=== PATIENT | female | born 1990 | race African-American/Black ===

== ENCOUNTER 2018-10-16 01:28 | Inpatient (IN) | payer OTHER, SELFPAY ==
[2018-10-16] MEDS: Lactated Ringers 500 ML 999 ML IV ×2 (03:53→05:20)
[2018-10-16 04:00] VITALS: BMI 31.3
--- NOTE | 2018-10-16 04:03 | HP.PCM_ITS ---
- Problem List (1) Active labor at term Status: Acute (2) Hyperprolactinemia Status: Acute (3) Rh negative status during Status: Acute (4) History of herpes genitalis Status: Acute (5) History of spontaneous Status: Acute History Date of Admission: 10/16/18 Final FILIPPO: 10/14/18 Gestational age: 40 Weeks and 2 Days History of this : This is a 28 year-old, G [3], P [1011], at 40 weeks 2 days gestational age by US. Presented to L&D with contractions that started around 1pm yesterday afternoon and progressed throughout the night into the evening. Became closer together and more intense early this am around midnight. No vaginal bleeding or leakage of fluid. Good movement. and family at bedside. Allergies No Known Allergies Allergy (Verified 10/16/18 04:01) Home Medications: Home Medications Acyclovir 400 mg PO BID 10/16/18 Tablet 1 tab PO DAILY 10/16/18 Smoking Status: Never smoker Alcohol: None Number of Fetus(es): 1 NST - FHR Rate Baby A Baseline: 130 Variability:: Minimal Accelerations:: 15 x 15 Decelerations:: None FHR Category:: Category II Uterine Activity:: Every 4-5 minutes, strong History Past Pregnancies: Past Pregnancies Delivery Date Name GA/Weeks Outcome Route Weight Infant Gender Labor Length Anesthesia Delivery Location Provider FOB Labs: GBS negative Mom's Problem List Problem Status Onset Code Active labor at term Acute Hyperprolactinemia Acute E22.1 Rh negative status during Acute O26.899, Z67.91 Mom's Labs & Results 10/16/18 10/16/18 02:05 02:05 WBC Pending RBC Pending Hgb Pending Hct Pending MCV Pending MCH Pending MCHC Pending RDW Std Deviation Pending RDW Coeff of Paty Pending Plt Count Pending Blood Type Pending Antibody Screen Pending Course Did the patient receive Yes care? Labs Blood Type: O RH: NEGATIVE RPR/VDRL/Syphilis Nonreactive Rubella status Immune HbSAg Negative Date Done: 02/27/18 Chlamydia Negative Gonorrhea Negative HIV/AIDS Non-Reactive Group B Strep: Negative Current Obstetrical History Gestational Diabetes No Incompetent Cervix No Infertility No IUGR No Macrosomia No Hypertension/Pre-eclampsia No Placenta Previa/Abruption No PTL/PROM No Uterine anomaly No Oligohydramnios No Polyhydramnios No Multiple gestation No Past Medical History Asthma No Diabetes No Hypertension No Heart disease No Mitral valve prolapse No Neurologic/Seizure disorder/ No Migraines Kidney disease No Liver disease No Varicosities No Clotting disorders/Hx of DVT No Thyroid Dysfunction No Other medical diseases No Psychiatric disorders No Major trauma No Abnormal PAP smear No Sleep apnea No Mammogram in the last 2 years No Social History Hx Smoking No Smoking Status Never smoker Expected Delivery Method: Spontaneous Vaginal Review of Systems Constitutional: Denies: Chills, Fever, Weight Change HEENT: Denies: Head Aches Cardiovascular: Denies: Chest Pain, Palpitations Respiratory: Denies: Cough, Shortness of breath at rest, Sputum production Gastrointestinal: Denies: Nausea, Vomiting Genitourinary: Denies: Dysuria Neurological: Denies: Numbness, Tingling, Focal weakness Psychiatric: Denies: Anxiety, Depression, Homicidal Ideations, Suicidal Ideations Physical Exam General: Alert, Oriented x3, Cooperative HEENT: Atraumatic, Normocephalic Cardiovascular: Regular rate, Regular Rhythm, No murmurs Lungs: Clear to auscultation, Normal air movement, No rhonchi, No wheeze Abdomen: Soft, Gravid Extremities:: No edema Neurological: Deep Tendon Reflexes 2+/4 and Symmetrical. Negative for: Clonus CLOCK AND WATCH HANDS MOUNTER: Normal external genitalia Estimated gestational size: Appropriate for gestational size Presentation: Cephalic Cervix Dilation (cm): 7 - vertex Station: -2 Effacement (%): 90 Assessment/Plan All Active Problems Active labor at term (Acute) Hyperprolactinemia (Acute) Rh negative status during (Acute) History of herpes genitalis (Acute) History of spontaneous (Acute) This is a 28 year-old, G [3], P [1011], at 40 weeks 2 days gestational age by ultrasound Active labor GBS negative Category 2 FHT P: 1)Admit to L&D 2)Routine lab, IV saline lock 3)Would like unmedicated . Nitrous and warm water immersion for pain relief. Epidural upon request 4) Positional changes 5) notified of patient status and admission 6) History of genital herpes, no active outbreak. Taking Acyclovir for prophylaxis.
[2018-10-16] MEDS: Lactated Ringers 1,000 ML 50 ML IV (04:23)
[2018-10-16] MEDS: Ondansetron 4 MG/2 ML Vial IV (04:25)
[2018-10-16 04:30] LABS: Hematocrit 39.2 % (37-47); Mean Corp Hgb Conc 33.2 g/dL (32-36); Mean Corpuscular Hgb 31.1 pg (27.0-32.0); Mean Corpuscular Volume 93.8 fL (81-99); Mean Platelet Vol. 10.9 fl (6.2-12.0); Platelet Count 157 K/mm3 (150-450); RBC Distribution Width CV 13.7 % (11.6-14.6); RBC Distribution Width SD 46.4 fl (35.1-43.9); Red Blood Count 4.18 M/mm3 (4.2-5.4); White Blood Count 7.8 K/mm3 (4.4-11.0)
[2018-10-16] MEDS: Oxytocin 30 units/NS 500 ml 30 UNITS/500 ML IV.SOLN 334 UNITS IV (06:34)
--- NOTE | 2018-10-16 07:02 | OP.PCM_ITS ---
Problem List (1) Active labor at term Status: Acute (2) Hyperprolactinemia Status: Acute (3) Rh negative status during Status: Acute (4) History of herpes genitalis Status: Acute (5) History of spontaneous Status: Acute Vaginal Delivery Maternal Presentation: Active Labor Amniotic Membrane Rupture Type: Artificial Amniotic Fluid Description: Clear Final FILIPPO: 10/14/18 Final FILIPPO Source: US <20 weeks Gestational age: 40 Weeks and 2 Days Date of Procedure: 10/16/18 Pre-Operative Diagnosis: Active Labor Post-Operative Diagnosis: Surgery/ Procedure Performed: Spontaneous Vaginal Delivery Type of Anesthesia: None, Local with 1% lidocaine - For perineal repair Description of Procedure: Progressed to complete with strong urge to push, unmedicated. Good pushing efforts and imminent delivery. of viable female infant over 1st degree perineal laceration. APGARS 8,9. Infant head delivered with body forthcoming, terminal meconium. Infant placed on maternal abdomen. Mouth and nares suctioned for secretions. Spontaneous cry. Pitocin started for active 3rd stage management. Placenta delivered via maternal effort el, intact, 3 vessel cord. Perineum inspected and revealed 1st degree perineal laceration. Repaired w ith 3.0 vicryl and Lidocaine. Well approximated and hemostasis achieved. Fundus firm, EBL 200ml. Vaginal sweep completed. Sponge and instrument count correct. Mom and baby stable. Planning to breastfeed. Family bonding well. notified of delivery. Presentation: Vertex Placental Delivery Description: Spontaneous Placenta Disposition: [facility] Cord Vessel Description: 3 Vessels Cord Entanglement: None Estimated Blood Loss: 200 ml Infant A gender: Female (1 minute): 8 (5 minute): 9 Episiotomy Description: None Laceration: Perineal Extension/lac, 1st degree Medications given after delivery: IV Pitocin
[2018-10-16 12:50] VITALS: BP 109/63; PULSE 70; RESP 18; TEMP 36.6
[2018-10-16 16:10] VITALS: BP 121/64; PULSE 71; RESP 16; TEMP 36.7; O2SAT 97
[2018-10-16 20:45] VITALS: BP 121/58; PULSE 82; RESP 16; TEMP 37.1
[2018-10-17] VITALS: BP 131/63; PULSE 78; RESP 16; TEMP 36.6
[2018-10-17 03:30] VITALS: BP 124/63; PULSE 74; RESP 16; TEMP 36.6
[2018-10-17 06:54] LABS: Hemoglobin 12.6 g/dL (12.0-15.0); Mean Corp Hgb Conc 34.1 g/dL (32-36); Mean Corpuscular Volume 93.9 fL (81-99); Mean Platelet Vol. 10.8 fl (6.2-12.0); POSITIVE COUNT YES; Platelet Count 135 K/mm3 (150-450); RBC Distribution Width CV 13.6 % (11.6-14.6); RBC Distribution Width SD 46.5 fl (35.1-43.9); Red Blood Count 3.94 M/mm3 (4.2-5.4); White Blood Count 12.9 K/mm3 (4.4-11.0)
[2018-10-17 07:00] LABS: Scan Indicated on CBC? Y/N YES- FLAGS NOTED
[2018-10-17 07:42] VITALS: BP 119/60; PULSE 69; RESP 16; TEMP 36.6; O2SAT 98
--- NOTE | 2018-10-17 10:58 | DCINST_ITS ---
Discharge Diet: No Restrictions Discharge Activity: Return to Normal Activity, May not drive while taking narcotic pain medications., May Shower May resume sexual activity in: 4-6 weeks Additional Activity Instructions:: Nothing in the vagina for 4-6 weeks. You may return to work/school in 6 weeks. Call your doctor if your incision/area has: Continuous Slow Oozing, Sudden Increased Bleeding, Increased Pain/ Swelling, Increased Redness, Foul Smelling Discharge Additional Instructions: If you experience any of the following, contact your healthcare provider. * Bleeding that soaks a pad every hour for 2 hours * Fever 100.4 or higher * Unrelieved incision or abdominal pain * Swelling, redness, discharge or bleeding from your incision or episiotomy site * Your incision begins to separate * Problems urinating (including inability to urinate or burning while urinating). * Visual changes * Severe headache * Flu-like symptoms * Pain or redness in one of both of your breasts * Pain, warmth, tenderness or swelling in your legs, especially the calf area * Frequent nausea and vomiting * Symptoms of depression or anxiety If you experience any of the following, call 911 or go to the nearest Emergency Room. * Chest pain * Problems breathing * Seizure activity * Partial or complete paralysis of a body part, slurred speech, weakness or drooping of the face, or a sudden inability to walk or hold your balance Allergies/Adverse Reactions: Allergies No Known Allergies Allergy (Verified 10/16/18 04:01) Medications to take at Discharge Acyclovir 400 mg PO BID 10/16/18 Tablet 1 tab PO DAILY 10/16/18 Please Follow Up With: Kelly Bonilla, [facility] - [phone] When: Make appointments in 1-2 in 6 weeks or as needed. Primary Care Physician: Care Physician,No Primary [Primary Care Provider] - Test Results: Test results from this visit will be discussed in further detail at your follow- up appointment, if applicable.
--- NOTE | 2018-10-17 10:58 | PCM.DCVAG ---
Discharge Diet: No Restrictions Discharge Activity: Return to Normal Activity, May not drive while taking narcotic pain medications., May Shower May resume sexual activity in: 4-6 weeks Additional Activity Instructions:: Nothing in the vagina for 4-6 weeks. You may return to work/school in 6 weeks. Call your doctor if your incision/area has: Continuous Slow Oozing, Sudden Increased Bleeding, Increased Pain/ Swelling, Increased Redness, Foul Smelling Discharge Additional Instructions: If you experience any of the following, contact your healthcare provider. Bleeding that soaks a pad every hour for 2 hours Fever 100.4 or higher Unrelieved incision or abdominal pain Swelling, redness, discharge or bleeding from your incision or episiotomy site Your incision begins to separate Problems urinating (including inability to urinate or burning while urinating). Visual changes Severe headache Flu-like symptoms Pain or redness in one of both of your breasts Pain, warmth, tenderness or swelling in your legs, especially the calf area Frequent nausea and vomiting Symptoms of depression or anxiety If you experience any of the following, call 911 or go to the nearest Emergency Room. Chest pain Problems breathing Seizure activity Partial or complete paralysis of a body part, slurred speech, weakness or drooping of the face, or a sudden inability to walk or hold your balance Allergies/Adverse Reactions: Allergies No Known Allergies Allergy (Verified 10/16/18 04:01) Medications to take at Discharge Acyclovir 400 mg PO BID 10/16/18 Tablet 1 tab PO DAILY 10/16/18 Please Follow Up With: Kelly Bonilla, [facility] - [phone] When: Make appointments in 1-2 in 6 weeks or as needed. Primary Care Physician: Care Physician,No Primary [Primary Care Provider] - Test Results: Test results from this visit will be discussed in further detail at your follow-up appointment, if applicable.
--- NOTE | 2018-10-17 11:59 | PCM.PN.OB ---
Patient Problems: Active and Suspected Problems Active labor at term (Acute) Hyperprolactinemia (Acute) Rh negative status during (Acute) History of herpes genitalis (Acute) History of spontaneous (Acute) Subjective: pain well controlled, average lochia - Physical Exam General: Alert, Cooperative, No apparent distress Vital Signs Temp Pulse Resp BP Pulse Ox 97.9 F 69 16 119/60 98 10/17/18 07:42 10/17/18 07:42 10/17/18 07:42 10/17/18 07:42 10/17/18 07:42 Oxygen Delivery Method Room Air Weight: 87.997 kg Body Mass Index (BMI) 31.3 Intake and Output for Last 24 Hours 10/15/18 10/16/18 10/17/18 23:59 23:59 23:59 Intake Total 1561.16 / 1561.16 Output Total 600 / 600 Balance 961.16 / 961.16 Laboratory Tests Past 24 Hrs 10/17/18 06:40 WBC 12.9 H RBC 3.94 L Hgb 12.6 Hct 37.0 MCV 93.9 MCH 32.0 MCHC 34.1 RDW Std Deviation 46.5 H RDW Coeff of Paty 13.6 Plt Count 135 L MPV 10.8 Medical Necessity - Tobacco Use Smoking Status: Never smoker Assessment/Plan All Active Problems Active labor at term (Acute) Hyperprolactinemia (Acute) Rh negative status during (Acute) History of herpes genitalis (Acute) History of spontaneous (Acute) PPD#1 doing well ready for d/c doing well
[2018-10-17 12:09] VITALS: BP 105/64; PULSE 75; RESP 16; TEMP 36.8
== END 2018-10-17 14:10 | disposition home or self-care (01) | DRG 806 ==
PROVIDERS: Advanced Practice Midwife; Admitting Provider Obstetrics & Gynecology; Referring Provider Obstetrics & Gynecology; Visit Provider Obstetrics & Gynecology
DX: O70.0 First degree perineal laceration during delivery (principal); E22.1 Hyperprolactinemia; Z37.0 Single live birth; O77.0 Labor and delivery complicated by meconium in amniotic fluid; O99.284 Endocrine, nutritional and metabolic diseases complicating childbirth; Z67.91 Unspecified blood type, Rh negative; Z3A.40 40 weeks gestation of pregnancy
CPT/HCPCS: 59025; 59050; 85027; 85461; 86850; 86900; 86901; 90384; 99218; J7120; G0378; J2405; J2790

== ENCOUNTER 2024-05-23 01:27 | Inpatient (IN) | payer BC, SELFPAY ==
[2024-05-23] VITALS (26 sets, daily range): BP systolic 126–152; BP diastolic 55–87; PULSE 82–107; RESP 15–18; TEMP 36.1–36.8; O2SAT 97–100; BMI 37.3
[2024-05-23 02:31] LABS: Absolute Lymphocyte Count 1.68 X10^3/uL (0.83-4.51); Absolute Neutrophil Count 5.4 X10^3/uL (2.0-7.7); Basophil# 0.04 X10^3/uL; Basophil% 0.5 % (0-1); Eosinophil# 0.12 X10^3/uL; Eosinophils% 1.5 % (0-5); Hematocrit 36.2 % (37-47); Hemoglobin 11.6 g/dL (12.0-15.0); Lymphocyte # 1.68 X10^3/ul (0.83-4.51); Lymphocyte % 21.1 % (19-41); Mean Corpuscular Hgb 28.1 pg (27.0-32.0); Mean Corpuscular Volume 87.7 fL (81-99); Mean Platelet Vol. 9.9 fl (6.2-12.0); Monocyte# 0.54 X10^3/uL; Monocyte% 6.8 % (0-10); NRBC Flagged by Analyzer 0 % (0-5); Neutrophil # 5.41 X10^3/uL (2.7-7.7); Neutrophil % 67.8 % (47-70); POSITIVE MORPHOLOGY YES; Platelet Count 218 K/mm3 (150-450); RBC Distribution Width CV 20.4 % (11.6-14.6); Red Blood Count 4.13 M/mm3 (4.2-5.4)
[2024-05-23 02:51] LABS: Differential Indicated SCAN CRITERIA MET
[2024-05-23 03:03] LABS: Syphilis Antibodies Nonreactive (Nonreactive)
[2024-05-23 03:55] LABS: Anisocytosis 1+; Macrocytosis 1+
[2024-05-23 04:16] LABS: AST(SGOT) 26 U/L (<=31); Alanine Aminotransfer ALT/SGPT 27 U/L (<=34); Creatinine, Serum 0.59 mg/dL (0.70-1.20); EST Glomerular Filtration Rate 120 (>60); Estimated Creatinine Clearance 168.67 ml/min (50-250)
[2024-05-23 04:56] LABS: Uric Acid 4.5 mg/dL (2.6-6.0)
[2024-05-23 05:15] LABS: Protein, Urine (Random) 28.2 mg/dL (0.0-12.0); Protein:Creat Ratio 194 mg/g CRE (0-200)
--- NOTE | 2024-05-23 06:02 | HP.PCM.OB_ITS ---
HPI - General General Date of Admission: 05/23/24 HPI Narrative RJ GARZA, is a 34 F who presents [id number] at 39w5d with FILIPPO 05/25/24. Presented after SROM at 1130pm and increase in contractions. Maternal Data Information FILIPPO Calculator Estimated Delivery Date Method Current WG Current Estimate 05/25/24 Manual 39w 5d PFSH PFSH Home Medications ?Medication ?Instructions ?Recorded ?Last Taken ?Type Tablet 1 tab PO DAILY Check with pr imary 10/16/18 05/22/24 08:00 History doctor 1 Allergy/AdvReac Type Severity Reaction Status Date / Time No Known Allergies Allergy Verified 05/23/24 01:43 Social History Smoking Status: Never smoker History Elective abortions Hx Para 2 Spontaneous abortions Hx # Term Pregnancies Ectopic pregnancies Hx # Pregnancies Multiple births # of living children ROS Constitutional Constitutional: Reports systems reviewed and no addt'l complaints, except as documented; Denies headache(s) Eyes Eyes: Denies acute decrease in peripheral vision, blurry vision or change in vision ENT HEENT: Reports systems reviewed and no addt'l complaints, except as documented Cardiovascular Cardiovascular: Denies chest pain or dizziness Respiratory/Chest Respiratory/Chest: Denies cough, dyspnea, dyspnea on exertion, shortness of breath at rest or shortness of breath with exertion Gastrointestinal Gastrointestinal: Denies abdominal pain, diarrhea, nausea or vomiting Genitourinary Genitourinary: Denies abdominal discomfort Musculoskeletal Musculoskeletal: Denies limited range of motion Integumentary Integumentary: Reports systems reviewed and no addt'l complaints, except as documented Neurologic Neurologic: Reports systems reviewed and no addt'l complaints, except as documented Psychiatric Psychiatric: Reports systems reviewed and no addt'l complaints, except as documented Endocrine Endocrinology: Reports systems reviewed and no addt'l complaints, except as documented Hematologic/Lymphatic Hematologic/Lymphatic: Reports systems reviewed and no addt'l complaints, except as documented Allergic/Immunologic Allergic/Immunologic: Reports systems reviewed and no addt'l complaints, except as documented Vital Signs Vital Signs Vital Signs: 05/23/24 01:38 05/23/24 01:38 05/23/24 01:38 Temperature Temperature Source Temporal Pulse Rate 94 Respiratory Rate Blood Pressure 143/78 H BP Systolic 143 BP Diastolic 78 Pulse Ox 05/23/24 01:38 05/23/24 01:38 05/23/24 01:38 Temperature 97.7 F L Temperature Source Pulse Rate Respiratory Rate 16 Blood Pressure BP Systolic BP Diastolic Pulse Ox 99 05/23/24 02:30 05/23/24 02:30 05/23/24 03:26 Temperature Temperature Source Pulse Rate 91 Respiratory Rate Blood Pressure 129/56 H 140/63 H BP Systolic 129 140 BP Diastolic 56 63 Pulse Ox 05/23/24 03:26 05/23/24 03:26 05/23/24 03:26 Temperature Temperature Source Pulse Rate 92 97 Respiratory Rate Blood Pressure BP Systolic BP Diastolic Pulse Ox 98 05/23/24 03:26 05/23/24 03:26 05/23/24 03:26 Temperature 98.0 F Temperature Source Temporal Pulse Rate Respiratory Rate 16 Blood Pressure BP Systolic BP Diastolic Pulse Ox 05/23/24 04:07 05/23/24 04:07 05/23/24 04:07 Temperature Temperature Source Temporal Pulse Rate 83 Respiratory Rate Blood Pressure 144/73 H BP Systolic 144 BP Diastolic 73 Pulse Ox 05/23/24 04:07 05/23/24 04:07 05/23/24 05:07 Temperature 97.6 F L Temperature Source Pulse Rate Respiratory Rate 16 Blood Pressure 143/77 H BP Systolic 143 BP Diastolic 77 Pulse Ox 05/23/24 05:07 05/23/24 05:07 05/23/24 05:07 Temperature Temperature Source Temporal Pulse Rate 82 Respiratory Rate 16 Blood Pressure BP Systolic BP Diastolic Pulse Ox 05/23/24 05:07 Temperature 97.7 F L Temperature Source Pulse Rate Respiratory Rate Blood Pressure BP Systolic BP Diastolic Pulse Ox Weight Weight: 238 lb 12.17 oz Body Mass Index (BMI) 37.3 Physical Exam Const alert and oriented x3 General Appearance: cooperative Orientation / Consciousness: awake, oriented to person, oriented to place and oriented to time Exam Limitations: no limitations HEENT normocephalic Head and Scalp: normal to inspection, normocephalic and atraumatic Face and Sinus: normal facial exam Eyes General Eye: normal appearance of both eyes Neck full ROM Chest Chest: symmetrical chest wall rise Resp normal respiratory effort and normal air movement Auscultation: clear to auscultation bilaterally Cardio regular rate, regular rhythm, S1 normal heart sound, S2 normal heart sound, no murmurs, no rub, no gallops and no clicks GI normal to inspection, nondistended, normoactive bowel sounds and non-tender appearance of the vagina normal Bladder / Kidney Exam: no CVA tenderness Manual OB Exam: estimated gestational size large, presentation cephalic, dilated 6, effaced 70, station -1 and other arom small amount of clear fluid Back/Spine normal ROM Extremity normal to inspection and full ROM Skin no rashes or lesions noted Neuro oriented x3, CN's II-XII intact bilaterally and moves all extremities Sensorium / Orientation: awake, alert and oriented to person Motor Exam: clonus absent Deep Tendon Reflexes: Rt Patellar (L4): 2+ and Lt Patellar (L4): 2+ Labs Labs Labs: Blood Type O NEGATIVE Antibody Screen NEGATIVE Hct 36.2 % (37-47) L Hgb 11.6 g/dL (12.0-15.0) L Syphilis Total Ab Nonreactive (Nonreactive) Rhogam given: Yes HIV negative HBsAG negative HepC negative RPR negative GBS negative GC/CT negative O negative 1hr GCT normal Assessment & Plan (1) History of herpes genitalis: (2) History of spontaneous : (3) Rh negative status during : (4) Active labor at term: (5) SROM (spontaneous rupture of membranes): (6) 39 weeks gestation of : (7) LGA (large for gestational age) fetus: PLAN: Plan 1) Admit to labor and delivery 2) Routine labs 3) Category 1 FHT, intermittent auscultation 4) Pain management upon request, would like to labor in tub with possible delivery. 5) collaborative physician and notified of patient status, above assessment, and plan.
[2024-05-23] MEDS: Oxytocin 10 UNITS/ML Vial IM (09:25)
[2024-05-23] MEDS: Lidocaine 1% (20 ml mdv) 20 ML Vial INFILT (09:35)
--- NOTE | 2024-05-23 09:51 | OB.VAGDELI_ITS ---
Assessment & Plan (1) Vaginal delivery: (2) Second degree perineal laceration: (3) Shoulder dystocia, delivered: (4) Lactating mother: Maternal Data Information FILIPPO Calculator Estimated Delivery Date Method Current WG Current Estimate 05/25/24 Manual 39w 5d Vaginal Delivery Maternal Presentation Maternal Presentation: Active Labor and Spontaneous Rupture of Membranes Vaginal Delivery Information Procedure Performed: Spontaneous Vaginal Delivery and Shoulder Dystocia Maneuvers Delivery maneuver performed for shoulder dystocia: Dalila maneuver, Suprapubic pressure and Posterior arm extraction Head to body interval: 00:52 (52 seconds) Surgeon/Practitioner: Kelly Bonilla Date of Procedure: 05/23/24 Pre-Procedure Diagnosis: SROM, active labor Post-Procedure Diagnosis: , shoulder dystocia, second degree perineal laceration Type of anesthesia: Local with 1% Lidocaine Estimated Blood Loss: 300 ml Time of Delivery: 09:16 Findings Description of procedure: Progressed to complete with urge to push. Water labor for pain management. of viable male infant over second degree perineal laceration. APGARS 8,9 respectively. Infant head delivered with body not forthcoming. Shoulder dystocia identified and therapeutic support staff called. McRobert's and Suprapubic pressure completed with no release of anterior shoulder. Posterior arm removal and delivery of body. Shoulder dystocia lasted approximately 52 seconds. Terminal meconium. Placed on maternal abdomen, strong cry. Mouth and nares suctioned for secretions. Cord doubly clamped and cut by FOB after pulsations ceased, delayed cord clamping. Placenta delivered intact via joya, 3 vessel cord, intact. Pitocin started for active 3rd stage management. Perineum inspected and revealed second degree perineal laceration. Repaired with 3.0 vicryl rapide and lidocaine. Fundus firm and hemostasis achieved. EBL 300ml. Mom and baby stable, planning to breastfeed. Family bonding well. Dr. Huber notified of delivery. Presentation: Vertex and CHELSY Amniotic Membrane Rupture Type: Spontaneous (arom of forebag) Amniotic Fluid Description: Clear Placental Delivery Description: Spontaneous Placenta Disposition: [facility] Specimen collected: No Cord Vessel Description: 3 Vessels Cord Entanglement: None A Gender: Male (1 minute): 8 (5 minute): 9 Delayed Cord Clamping: Yes Elevated Guard biological inspector: No Post Vaginal Deli Medications given after delivery: IV Pitocin Episiotomy Description: None Laceration: Perineal Extension/lac and 2nd degree Complication Complications: Yes Complication Details: shoulder dystocia
[2024-05-23] MEDS: Acetaminophen 500 MG Tablet 1000 MG PO ×2 (10:54→18:51)
[2024-05-23] MEDS: Ibuprofen 600 MG Tablet PO (14:05)
[2024-05-24] VITALS (7 sets, daily range): BP systolic 117–134; BP diastolic 61–76; PULSE 85–98; RESP 14–16; TEMP 36.5–37.1; O2SAT 97–98
[2024-05-24] MEDS: Rho(D) Immune Globulin 300 MCG (1500 Unit) Syringe IV (01:36)
[2024-05-24] MEDS: Ibuprofen 600 MG Tablet PO ×3 (03:56→20:50)
[2024-05-24 09:06] LABS: Hematocrit 34.8 % (37-47); Hemoglobin 11.2 g/dL (12.0-15.0); Mean Corp Hgb Conc 32.2 g/dL (32-36); Mean Corpuscular Hgb 28.1 pg (27.0-32.0); Mean Corpuscular Volume 87.2 fL (81-99); Mean Platelet Vol. 10.7 fl (6.2-12.0); Platelet Count 201 K/mm3 (150-450); RBC Distribution Width CV 20.2 % (11.6-14.6); RBC Distribution Width SD 63.6 fl (35.1-43.9); Red Blood Count 3.99 M/mm3 (4.2-5.4); White Blood Count 11.3 K/mm3 (4.4-11.0)
[2024-05-24 09:07] LABS: Absolute Lymphocyte Count 1.61 X10^3/uL (0.83-4.51); Absolute Neutrophil Count 7.9 X10^3/uL (2.0-7.7); Anisocytosis 1+; Basophil# 0.06 X10^3/uL; Basophil% 0.5 % (0-1); Differential Comment SCANNED; Differential Indicated SCAN CRITERIA MET; Eosinophil# 0.21 X10^3/uL; Eosinophils% 1.9 % (0-5); Lymphocyte % 14.3 % (19-41); Monocyte# 1.31 X10^3/uL; Monocyte% 11.6 % (0-10); Neutrophil % 69.7 % (47-70); Polychromasia RARE
--- NOTE | 2024-05-24 09:10 | PN.OBGYN_ITS ---
Subjective Subjective Doing well. Ambulating and voiding without difficulty. Mild lochia. Breast feeding. Objective Data Objective Data Vital Signs: Vital Signs Temp Pulse Resp BP Pulse Ox O2 Del Method 98.3 F 85 16 122/76 H 98 Room Air 05/24/24 03:52 05/24/24 08:50 05/24/24 03:52 05/24/24 08:50 05/23/24 18:00 05/24/24 03:52 Oxygen Delivery Method Room Air Weight: 108.3 kg Body Mass Index (BMI) 37.3 Intake & Output: Intake and Output for Last 24 Hours 05/22/24 05/23/24 05/24/24 23:59 23:59 23:59 Output Total 300 / 300 Balance -300 / -300 Lab / Micro Data 05/24/24 03:25 05/23/24 02:15 Labs: Laboratory Results - last 24 hr 05/23/24 16:30: Screen NEGATIVE, Baby's Blood Type O POSITIVE, Baby's LEA NEGATIVE 05/24/24 03:25: WBC 11.3 H, RBC 3.99 L, Hgb 11.2 L, Hct 34.8 L, MCV 87.2, MCH 28.1, MCHC 32.2, RDW Std Deviation 63.6 H, RDW Coeff of Paty 20.2 H, Plt Count 201, MPV 10.7, Immature Gran % (Auto) 2.000 H, Neut % (Auto) 69.7, Lymph % (Auto) 14.3 L, [place] % (Auto) 11.6 H, Eos % (Auto) 1.9, Baso % (Auto) 0.5, A bsolute Neuts (auto) 7.9 H, Absolute Lymphs (auto) 1.61, Differential Comment SCANNED, Polychromasia RARE, Anisocytosis 1+ ROS Constitutional Constitutional: Denies headache(s) Cardiovascular Cardiovascular: Denies chest pain or dyspnea Gastrointestinal Gastrointestinal: Denies nausea or vomiting Genitourinary Genitourinary: Denies dysuria Physical Exam Const alert, oriented x3 and no apparent distress General Appearance: cooperative and comfortable Eyes PERRL and EOMs intact bilaterally Resp normal respiratory effort GI soft to palpation and non-tender Uterus Palpation: uterus fundus firm ( below umbilicus) Extremity normal to inspection and full ROM Neuro oriented x3 and CN's II-XII intact bilaterally Psych mental status grossly normal Assessment & Plan (1) Vaginal delivery: (2) Lactating mother: PLAN: Plan Routine care
[2024-05-25] VITALS (8 sets, daily range): BP systolic 117–129; BP diastolic 55–73; PULSE 81–95; RESP 14–16; TEMP 36.3–36.8; O2SAT 94–98
[2024-05-25] MEDS: Ibuprofen 600 MG Tablet PO (07:35)
--- NOTE | 2024-05-25 08:02 | PN.OBGYN_ITS ---
Subjective Subjective Doing well. Ambulating and voiding without difficulty. Mild lochia. Breast feeding and bottle feeding. Objective Data Objective Data Vital Signs: Vital Signs Temp Pulse Resp BP Pulse Ox O2 Del Method 97.4 F L 81 16 122/61 H 94 Room Air 05/25/24 02:15 05/25/24 02:16 05/25/24 02:15 05/25/24 02:16 05/25/24 02:15 05/25/24 02:15 Oxygen Delivery Method Room Air Weight: 108.3 kg Body Mass Index (BMI) 37.3 Intake & Output: Intake and Output for Last 24 Hours 05/23/24 05/24/24 05/25/24 23:59 23:59 23:59 Output Total 300 / 300 Balance -300 / -300 Lab / Micro Data 05/24/24 03:25 05/23/24 02:15 Labs: Laboratory Results - last 24 hr 05/24/24 03:25: WBC 11.3 H, RBC 3.99 L, Hgb 11.2 L, Hct 34.8 L, MCV 87.2, MCH 28.1, MCHC 32.2, RDW Std Deviation 63.6 H, RDW Coeff of Paty 20.2 H, Plt Count 201, MPV 10.7, Immature Gran % (Auto) 2.000 H, Neut % (Auto) 69.7, Lymph % (Auto) 14.3 L, [place] % (Auto) 11.6 H, Eos % (Auto) 1.9, Baso % (Auto) 0.5, A bsolute Neuts (auto) 7.9 H, Absolute Lymphs (auto) 1.61, Differential Comment SCANNED, Polychromasia RARE, Anisocytosis 1+ ROS Constitutional Constitutional: Denies headache(s) Cardiovascular Cardiovascular: Denies chest pain or dyspnea Gastrointestinal Gastrointestinal: Denies nausea or vomiting Genitourinary Genitourinary: Denies dysuria Physical Exam Const alert, oriented x3 and no apparent distress General Appearance: cooperative and comfortable Eyes PERRL and EOMs intact bilaterally Resp normal respiratory effort GI soft to palpation and non-tender Uterus Palpation: uterus fundus firm ( below umbilicus) Extremity normal to inspection and full ROM Neuro oriented x3 and CN's II-XII intact bilaterally Psych mental status grossly normal Assessment & Plan (1) Lactating mother: (2) Shoulder dystocia, delivered: (3) Second degree perineal laceration: (4) Vaginal delivery: PLAN: Plan Discharge home
--- NOTE | 2024-05-25 08:16 | DS.PCM_ITS ---
Providers Date of Admission: 05/23/24 Date of Discharge: 05/25/24 Primary Care Physician: No Primary Care Phys Reason For Visit: LABOR/DEL VAG DEL Diagnosis Discharge Diagnosis (1) Lactating mother: Status: Acute Code(s): Z39.1 - Encounter for care and examination of lactating mother (2) Shoulder dystocia, delivered: Status: Acute Code(s): O66.0 - Obstructed labor due to shoulder dystocia (3) Second degree perineal laceration: Status: Acute Code(s): O70.1 - Second degree perineal laceration during delivery (4) Vaginal delivery: Status: Acute Code(s): O80 - Encounter for full-term uncomplicated delivery Plan Discharge home Medications at Discharge Home Medications Tablet 1 tab PO DAILY Check with primary doctor 10/16/18 ibuprofen 600 mg tablet 600 mg PO Q6H PRN PRN Pain Score 1-10 #30 tabs 05/25/24 Hospital Course Operations None Procedures None Summary of Care Provided Minutes Spent on Discharge: 20 Hospital Course: with shoulder dystocia. Uncomplicated Physical Exam Const alert and no apparent distress Narrative: Fundus firm, below umbilicus. Weight / BMI Weight Weight: 108.3 kg Body Mass Index (BMI) 37.3 ABG / Lab / Microbiology Data 05/24/24 03:25 05/23/24 02:15 Laboratory: Laboratory Results - last 24 hr 05/24/24 03:25: WBC 11.3 H, RBC 3.99 L, Hgb 11.2 L, Hct 34.8 L, MCV 87.2, MCH 28.1, MCHC 32.2, RDW Std Deviation 63.6 H, RDW Coeff of Paty 20.2 H, Plt Count 201, MPV 10.7, Immature Gran % (Auto) 2.000 H, Neut % (Auto) 69.7, Lymph % (Auto) 14.3 L, Traill % (Auto) 11.6 H, Eos % (Auto) 1.9, Baso % (Auto) 0.5, A bsolute Neuts (auto) 7.9 H, Absolute Lymphs (auto) 1.61, Differential Comment SCANNED, Polychromasia RARE, Anisocytosis 1+ D/C Instructions May resume sexual activity in: 6 weeks DC O2, CPAP, BIPAP Needs Home O2 Discharge instructions: No Please Follow Up With: Unique Ledezma MD When: Follow up with our office in 1-2 and 6 weeks or as needed. [phone] Meaningful Use Info Meaningful Use Meaningful Use Diagnoses (Choose all that apply): None applicable Ischemic Stroke Statin Dosing Therapy Reference: STATIN DOSE THERAPY REFERENCE: * Patients > 75 years receive moderate or high dose statin therapy. * Patients 75 years or YOUNGER should receive HIGH intensity statin dose unless contraindicated. You will be required to document reason for non-treatment if statin daily dose does not meet guidelines. HIGH DOSE STATIN THERAPY DAILY Atorvastatin > than or = to 40 mg Rosuvastatin > than or = to 20 mg Amlodipine + Atorvastatin > than or = to 2.5/40 mg Ezetimibe + Simvastatin 10/80 mg Simvastatin 80mg Discharge Plan Admission Admit Date/Time: 05/23/24 01:27 Primary Reason for Your Visit: labor Attending Provider: Kelly Bonilla Primary Care Provider: Care Physician,No Primary Discharge Orders/Prescriptions Prescriptions: New ibuprofen 600 mg Tablet 600 mg PO Q6H PRN PRN (Reason: Pain Score 1-10) Qty: 30 0RF Continued Tablet 1 tab PO DAILY Referrals / Follow Up: Care Physician,No Primary [Primary Care Provider] - Disposition Disposition (needs filled in before D/C Order can be placed): Home, Self Care
--- NOTE | 2024-05-25 11:10 | CASEMGMT ---
Social Work Assessment Labor and Delivery Unit Patient Address: [address] [place] [address]. [address], [place] [address] Phone number: [phone] Date of Referral: 05/23/24 Time of Referral: 02:07 Referred By: Adam Alba Date of Intervention: 05/25/24 Time of Intervention: 11:08 Reason for Referral: Parent with drug or alcohol abuse History obtained from: Medical records, mother of baby (MOB) and father of baby (FOB).? Household composition: MOB, FOB (Luis Felipe), their 12 year old daughter Macrina, 5 year old daughter Jerzy and son Alfie, born on 05/23/2024. Patient's parent/guardian status: MOB and FOB have been together for 15 years and for 7 of those years. MOB and FOB describe a positive relationship, both will be actively involved in the care of and MOB denied any domestic violence. Medical History:? : 4, para, now 3. 1SAB. MOB received care through [facility] and visits were routine. Apgars: 8 and 9, Weight: 4245 grams. [place] was noted to be large for gestational age. ?Integration Developer: Dr. Anthony in [place]. Educational Status: MOB and FOB denied any issues/concerns with reading or writing. Both MOB and FOB attended some college. Financial Status: MOB and FOB reported their income is sufficient to meet the needs of their family at this time. MOB works from home full-time in [employer] and the FOB works full-time in accounting management at [employer]. Infant Supplies: MOB and FOB reported they have all the supplies they need for baby at this time including but not limited to: Car seat, bassinet, pack-n-play, crib, diapers, bottles, breast pump and clothing. Childcare/Caregiver(s):? 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 FOB will help provide care during the time he isn?t working. Transportation:? MOB and FOB reported they are both licensed drivers and have a reliable vehicle to take baby to and from all medical appointments. No transportation issues identified. Programs/Agencies Involved: None and none needed. Children Services/Legal Issues:? Denied. Behavioral Health Issues:?? Mental Health History: MOB and FOB denied any history of mental health issues. ?Substance Use History: ?MOB and FOB denied any history of drug or alcohol abuse.? Family History: ?s paternal grandfather (PGF) used to struggle with anxiety, depression and drug and alcohol abuse.? 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 ???Drug Screens:? None obtained at the time of this admission.? Family/Social Stressors: ?MOB and FOB denied any current family or social stressors. Support Systems: Ample.? MOB identified her biggest support as the FOB, both of their parents and their large uatsdin family. Depression/Shaken Baby/Safe Sleeping: vegetable harvest worker provided verbal and written education on PPD, Safe Sleeping and Shaken Baby.? MOB and FOB verbalized an understanding.??? ASSESSMENT:?? MOB and FOB both provided consent to social work visit. At the time of the visit, MOB was sitting upright in the hospital bed with , and the FOB was sitting close-by on a chair.? Both were very engaged and cooperative and appeared to be attached and bonded to .? MOB was observed to be very gentle, attentive to ?s needs and caressed throughout the visit and made sure was comfortable. vegetable harvest worker observed positive interaction between the MOB and FOB. At the end of the assessment, rn social services requested to speak with the MOB alone which MOB and FOB were both agreeable to. MOB reported feeling safe, denied any previous or current domestic violence, drug or alcohol abuse or unmanaged mental health issues with either herself of the FOB. Safe Plan of Care for related to substance use: N/A; not needed.? PLAN:? Baby to be discharged home when ready.? vegetable harvest worker also provided written information on depression, depression resources and Help Me Grow as additional resources offered by rn social services which MOB and FOB accepted. No other services requested or indicated. Georgie Corley, CRAYON MOLDING MACHINE OPERATOR, INCLINOMETER TESTER
--- NOTE | 2024-05-25 11:10 | CASEMGMT ---
Social Work Assessment Labor and Delivery Unit Patient Address: [address] [place] [address]. [address], [place] [address] Phone number: [phone] Date of Referral: 05/23/24 Time of Referral: 02:07 Referred By: Adam Alba Date of Intervention: 05/25/24 Time of Intervention: 11:08 Reason for Referral: Parent with drug or alcohol abuse History obtained from: Medical records, mother of baby (MOB) and father of baby (FOB).? Household composition: MOB, FOB (Luis Felipe), their 12 year old daughter Macrina, 5 year old daughter Jerzy and son Alfie, born on 05/23/2024. Patient's parent/guardian status: MOB and FOB have been together for 15 years and for 7 of those years. MOB and FOB describe a positive relationship, both will be actively involved in the care of and MOB denied any domestic violence. Medical History:? : 4, para, now 3. 1SAB. MOB received care through [facility] and visits were routine. Apgars: 8 and 9, Weight: 4245 grams. [place] was noted to be large for gestational age. ?Liquor Blender: Dr. Anthony in [place]. Educational Status: MOB and FOB denied any issues/concerns with reading or writing. Both MOB and FOB attended some college. Financial Status: MOB and FOB reported their income is sufficient to meet the needs of their family at this time. MOB works from home full-time in [employer] and the FOB works full-time in accounting management at [employer]. Infant Supplies: MOB and FOB reported they have all the supplies they need for baby at this time including but not limited to: Car seat, bassinet, pack-n-play, crib, diapers, bottles, breast pump and clothing. Childcare/Caregiver(s):? 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 FOB will help provide care during the time he isn?t working. Transportation:? MOB and FOB reported they are both licensed drivers and have a reliable vehicle to take baby to and from all medical appointments. No transportation issues identified. Programs/Agencies Involved: None and none needed. Children Services/Legal Issues:? Denied. Behavioral Health Issues:?? Mental Health History: MOB and FOB denied any history of mental health issues. ?Substance Use History: ?MOB and FOB denied any history of drug or alcohol abuse.? Family History: ?s paternal grandfather (PGF) used to struggle with anxiety, depression and drug and alcohol abuse.? 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 ???Drug Screens:? None obtained at the time of this admission.? Family/Social Stressors: ?MOB and FOB denied any current family or social stressors. Support Systems: Ample.? MOB identified her biggest support as the FOB, both of their parents and their large muslim family. Depression/Shaken Baby/Safe Sleeping: youth worker provided verbal and written education on PPD, Safe Sleeping and Shaken Baby.? MOB and FOB verbalized an understanding.??? ASSESSMENT:?? MOB and FOB both provided consent to social work visit. At the time of the visit, MOB was sitting upright in the hospital bed with , and the FOB was sitting close-by on a chair.? Both were very engaged and cooperative and appeared to be attached and bonded to .? MOB was observed to be very gentle, attentive to ?s needs and caressed throughout the visit and made sure was comfortable. youth worker observed positive interaction between the MOB and FOB. At the end of the assessment, community mental health social worker requested to speak with the MOB alone which MOB and FOB were both agreeable to. MOB reported feeling safe, denied any previous or current domestic violence, drug or alcohol abuse or unmanaged mental health issues with either herself of the FOB. Safe Plan of Care for related to substance use: N/A; not needed.? PLAN:? Baby to be discharged home when ready.? youth worker also provided written information on depression, depression resources and Help Me Grow as additional resources offered by community mental health social worker which MOB and FOB accepted. No other services requested or indicated. Georgie Corley, SCHEDULING ASSISTANT, STITCHING MACHINE SETTER
== END 2024-05-25 15:05 | disposition home or self-care (01) | DRG 807 ==
PROVIDERS: Obstetrics & Gynecology; Admitting Provider Advanced Practice Midwife; Referring Provider Advanced Practice Midwife; Visit Provider Advanced Practice Midwife
DX: O42.02 Full-term premature rupture of membranes, onset of labor within 24 hours of rupture (principal); Z37.0 Single live birth; O26.893 Other specified pregnancy related conditions, third trimester; O36.63X0 Maternal care for excessive fetal growth, third trimester, not applicable or unspecified; O70.1 Second degree perineal laceration during delivery; O66.0 Obstructed labor due to shoulder dystocia; O77.0 Labor and delivery complicated by meconium in amniotic fluid; Z3A.39 39 weeks gestation of pregnancy
CPT/HCPCS: 59025; 59050; 82565; 82570; 84156; 84450; 84460; 84550; 85025; 85461; 86780; 86850; 86900; 86901; 99221; G0378; J2791